=== PATIENT | female | born 1960 | race Caucasian/White ===

== ENCOUNTER → 2017-09-03 | Outpatient (CLI) | payer OTHER | LOC: RAD 09:46 | DX: R22.42 Localized swelling, mass and lump, left lower limb (principal) ==

== ENCOUNTER → 2021-04-12 | Outpatient (CLI) | payer BC ==
[~2021-04-12] MED LIST: HYDROXYZINE HCL25 M1 PO; LISINOPRIL40 MG PO; LOSARTAN POTASS50 M1 PO; SERTRALINE50 MG PO
[2021-04-12 08:51] LABS: BASO # 0.07 K/mm3 (0.02-0.10); EOS # 0.06 K/mm3 (0.04-0.40); EOS % 0.8 % (1.0-5.0); LYMPH# 1.41 K/mm3 (1.50-4.00); MEAN CELL VOLUME 89 fl (78-100); MEAN CORPUSCULAR HEMOGLOBIN 28 pg (27-31); MEAN CORPUSCULAR HGB CONC 32 g/dL (33-37); MEAN PLATELET VOLUME 9.2 fl (7.4-10.4); MONO # 0.46 K/mm3 (0.20-0.80); NEU # 5.15 K/mm3 (1.40-6.50); PLATELET COUNT 290 K/mm3 (130-400); RED BLOOD COUNT 4.96 M/mm3 (4.10-5.30); WHITE BLOOD COUNT 7.2 K/mm3 (4.8-10.8)
[2021-04-12 08:59] LABS: POTASSIUM 4.3 mmol/L (3.5-5.1)
[2021-04-12 09:01] LABS: CALCIUM 9.5 mg/dL (8.3-10.5)
[2021-04-12 09:02] LABS: TOTAL PROTEIN 6.8 g/dL (6.4-8.3)
[2021-04-12 09:04] LABS: TOTAL BILIRUBIN 0.5 mg/dL (0.2-1.2)
== END ==
LOC: LAB 08:34
PROVIDERS: Physician Assistant
DX: Z13.220 Encounter for screening for lipoid disorders (principal); Z13.1 Encounter for screening for diabetes mellitus; Z13.29 Encounter for screening for other suspected endocrine disorder; I10 Essential (primary) hypertension

== ENCOUNTER 2021-04-18 15:54 | Emergency (ER) | payer BC ==
[~2021-04-18] VITALS: Ht 167.6 cm; Wt 103.5 kg
[2021-04-18 18:18] VITALS: BP 132/72
[2021-04-18] MEDS ORDERED: HYDROXYZINE HCL25 M1 PO (18:20)
[2021-04-18] MEDS ORDERED: LOSARTAN POTASS50 M1 PO (18:20)
[2021-04-18] MEDS ORDERED: SERTRALINE50 MG PO (18:20)
[2021-04-18] MEDS ORDERED: LISINOPRIL40 MG PO (18:21)
== END 2021-04-18 18:19 | disposition home or self-care (01) ==
LOC: ED 15:54
DX: S52.502A Unspecified fracture of the lower end of left radius, initial encounter for closed fracture (principal); W19.XXXA Unspecified fall, initial encounter
CPT/HCPCS: J1885